=== PATIENT | female | born 1975 | race Two or more races ===

== ENCOUNTER 2022-03-26 19:12 | Emergency (ER) | payer MEDICAID ==
[~2022-03-26] VITALS: Ht 157.5 cm; Wt 77.5 kg
[2022-03-26 20:27] VITALS: BP 120/70
[2022-03-26] MEDS ORDERED: KETOROLAC TROMETH 60MG/2ML VIAL IM ONE (20:30)
[2022-03-26] MEDS ORDERED: IBU600T PO (20:47)
[2022-03-26] MEDS ORDERED: HYDR-4902 PO (20:47)
== END 2022-03-26 21:05 | disposition home or self-care (01) ==
LOC: ER 19:12
DX: R51.9 Headache, unspecified (principal)
CPT/HCPCS: 70450; 96372; 99284; J1885